=== PATIENT | male | born 1950 | race Caucasian/White ===

== ENCOUNTER 2020-06-04 14:43 | Emergency (ER) | payer OTHER ==
[~2020-06-04] VITALS: Ht 180.3 cm; Wt 102.1 kg
[2020-06-04 14:59] VITALS: BP_SYST 125
[2020-06-04] MEDS ORDERED: HYDROcodone/ACETAMIN 5-325 MG TAB (NORCO/ VICODIN) PO ONE ×2 (15:15→18:00)
[2020-06-04 18:20] VITALS: BP_SYST 131
== END 2020-06-04 18:21 | disposition home or self-care (01) ==
LOC: SED 14:43
DX: M54.5 Low back pain (principal); W10.8XXA Fall (on) (from) other stairs and steps, initial encounter; Y93.89 Activity, other specified; Y92.89 Other specified places as the place of occurrence of the external cause; Y99.8 Other external cause status
CPT/HCPCS: 72072-TC; 72100-TC; 99285